=== PATIENT | female | born 1975 | race Caucasian/White ===

== ENCOUNTER 2018-01-02 07:10 | Emergency (ER) | payer BC ==
[~2018-01-02] VITALS: Ht 170.2 cm; Wt 90.7 kg
[2018-01-02] MEDS ORDERED: CHLOROQUINE PH250 MG PO (07:32)
[2018-01-02] MEDS ORDERED: BENLYSTA200 MG/11 INJ (07:33)
[2018-01-02] MEDS ORDERED: ONDANSETRON ODT8 MG PO (10:52)
[2018-01-02] MEDS ORDERED: NORCO 5-325 TA1 EACH PO (10:52)
[2018-01-02] MEDS ORDERED: COLCRYS0.6 MG PO (10:52)
--- NOTE | 2018-01-02 17:14 | EKG ---
[facility] [address] [facility] [place], [place] [address] Signed Normal sinus rhythm Nonspecific ST abnormality Abnormal ECG No previous ECGs available Confirmed by IRENE CRANDALL MD ([id number]) on 01/02/2018 5:14:31 PM Electronically Signed By: IRENE CRANDALL MD 01/02/18 1714 PATIENT NAME: AUDELIA SPICER Electrocardiogram DATE OF : 73 PHYSICIAN: IRENE CRANDALL MD REPORT #: [id number] REPORT IS CONFIDENTIAL AND NOT TO BE RELEASED WITHOUT AUTHORIZATION
== END 2018-01-02 11:15 | disposition home or self-care (01) ==
LOC: ED 07:10
DX: M32.12 Pericarditis in systemic lupus erythematosus (principal); Z88.0 Allergy status to penicillin; Z91.018 Allergy to other foods; Z88.2 Allergy status to sulfonamides; Z88.1 Allergy status to other antibiotic agents; Z88.8 Allergy status to other drugs, medicaments and biological substances; Z79.899 Other long term (current) drug therapy
CPT/HCPCS: 71046; 80053; 84484; 85025; 85379; 85651; 86140; 93005; 93010; 96374; 96375; 99284; J1885; J2405

== ENCOUNTER 2024-12-12 00:07 | Emergency (ER) | payer OTHER ==
[~2024-12-12] VITALS: Ht 170.2 cm; Wt 96.6 kg
[~2024-12-12 00:07] MED LIST: BENLYSTA200 MG/11 INJ; CHLOROQUINE PH250 MG PO; COLCRYS0.6 MG PO; NORCO 5-325 TA1 EACH PO; ONDANSETRON ODT8 MG PO
[2024-12-12] MEDS ORDERED: AMLODIPINE BESYL5 MG (00:32)
[2024-12-12] MEDS ORDERED: NITROGLYCERIN0.4 MG (00:32)
[2024-12-12] MEDS ORDERED: EPINEPHRIN0.3 MG/0.3 (00:32)
[2024-12-12] MEDS ORDERED: METFORMIN HCL500 M1 (00:32)
[2024-12-12] MEDS ORDERED: MECLIZINE HCL25 MG (00:32)
[2024-12-12 00:41] LABS: BILIRUBIN, URINE NEGATIVE (negative); BLOOD/HGB, URINE MODERATE (Negative); KETONE, URINE NEGATIVE (Negative); LEUK ESTERASE, URINE SMALL (negative); NITRITE, URINE NEGATIVE (negative)
[2024-12-12 00:47] LABS: CRYSTALS, URINE NONE SEEN (0-1+); EPITHELIAL CELLS, URINE SQUAMOUS 2+ /lpf (0-1+); RED BLOOD CELLS, URINE 0-1 /hpf (0-5); WHITE BLOOD CELLS, URINE 21-40 /HPF (0-5)
[2024-12-12 00:48] LABS: BACTERIA, URINE RARE /hpf (negative); CASTS, URINE NONE SEEN \\lpf; COLLECTION TYPE, URINE CLEAN CATCH; REFLEX CULTURE, URINE No (No)
[2024-12-12] MEDS ORDERED: MACROBID 100 M100 MG PO (00:53)
[2024-12-12] MEDS ORDERED: PYRIDIUM200 MG PO (00:54)
[2024-12-12] MEDS ORDERED: PHENAZOPYRIDINE HCL 100 MG TAB PO ONE (01:00)
[2024-12-12] MEDS ORDERED: NITROFURANTOIN MONOHYD MACROCR 100 MG HOME.PACK PO ONE (01:00)
[2024-12-12 01:01] VITALS: BP 132/82
== END 2024-12-12 01:25 | disposition home or self-care (01) ==
LOC: ED 00:07
PROVIDERS: Family Medicine
DX: N39.0 Urinary tract infection, site not specified (principal); Z79.84 Long term (current) use of oral hypoglycemic drugs; Z88.0 Allergy status to penicillin; Z91.040 Latex allergy status; Z91.018 Allergy to other foods; Z88.1 Allergy status to other antibiotic agents; Z88.8 Allergy status to other drugs, medicaments and biological substances
CPT/HCPCS: 81001; 99283

== ENCOUNTER 2025-06-24 18:56 | Emergency (ER) | payer OTHER ==
[~2025-06-24] VITALS: Ht 170.2 cm; Wt 96.6 kg
[~2025-06-24 18:56] MED LIST changes: +AMLODIPINE BESYL5 MG; +EPINEPHRIN0.3 MG/0.3; +MACROBID 100 M100 MG PO; +MECLIZINE HCL25 MG; +METFORMIN HCL500 M1; +NITROGLYCERIN0.4 MG; +PYRIDIUM200 MG PO
[2025-06-24] MEDS ORDERED: NITROGLYCERIN PACKET TOP ONE (19:15)
[2025-06-24] MEDS ORDERED: ASPIRIN 81 MG CHEW PO ONE (19:15)
[2025-06-24] MEDS ORDERED: NITROGLYCERIN 0.4 MG SUBL SL PRN (19:15)
[2025-06-24 19:27] LABS: BASOPHILS 0.4 % (0.1-1.2); EOSINOPHILS 0 % (0.7-5.8); LYMPHOCYTES 15.5 % (19.3-51.7); MCH 30.3 PG (25.6-32.2); MCHC 33.5 g/dL (32.2-35.5); MCV 90.3 fL (79.4-94.8); MONOCYTES 3.8 % (4.7-12.5); NEUTROPHILS 80.0 % (34.0-71.1); RBC 4.03 M/uL (3.93-5.22)
[2025-06-24] MEDS ORDERED: PREDNISONE20 MG PO (19:29)
[2025-06-24 19:45] LABS: ALT (SGPT) 19 U/L (14-59); AST (SGOT) 17 U/L (15-37); GLOMERULAR FILTRATION RATE,EST 90 mL/min (>60); PROTEIN, TOTAL 7.5 g/dL (6.4-8.2); UREA NITROGEN 21 mg/dL (7-18)
[2025-06-24] MEDS ORDERED: CYCLOBENZAPRINE10 MG PO (21:12)
[2025-06-24] MEDS ORDERED: CYCLOBENZAPRINE HCL 10 MG HOME.PACK PO ONE (21:15)
[2025-06-24 21:33] VITALS: BP 125/72
== END 2025-06-24 21:40 | disposition home or self-care (01) ==
LOC: ED 18:56
PROVIDERS: Family Medicine
DX: R07.89 Other chest pain (principal); Z88.0 Allergy status to penicillin; Z88.2 Allergy status to sulfonamides; Z88.1 Allergy status to other antibiotic agents; Z88.8 Allergy status to other drugs, medicaments and biological substances; Z91.040 Latex allergy status; Z91.018 Allergy to other foods; Z79.84 Long term (current) use of oral hypoglycemic drugs; Z79.52 Long term (current) use of systemic steroids; Z79.899 Other long term (current) drug therapy
CPT/HCPCS: 36415; 71045; 80053; 83735; 84484; 85025; 85379; 93005; 93010; 99285-25; A9270